=== PATIENT | female | born 1975 | race Caucasian/White ===

== ENCOUNTER 2018-12-21 06:31 | Day surgery (SDC) | payer BC ==
[~2018-12-21 06:31] MED LIST: Buffered Lidocaine 1% SYRIN* 1 ML/SYRINGE INTRADERM ONE; Lactated Ringers 1000 ML Bag* 1,000 ML IV SCH
[2018-12-21] MEDS ORDERED: Lidocaine 1% INJ* 10 MG/ML 30 ML SDV ONE (07:13)
[2018-12-21] MEDS ORDERED: fentaNYL* 50 MCG/ML 2 ML VIAL (100 MCG VIAL) ONE (07:49)
[2018-12-21] MEDS ORDERED: Propofol* 10 MG/ML 20 ML BTL ONE (07:49)
[2018-12-21] MEDS ORDERED: Lidocaine 2% PF * 5 ML VIAL ONE (07:49)
[2018-12-21] MEDS ORDERED: Midazolam* 1 MG/ML 2 ML VIAL (2 MG) ONE (08:11)
[2018-12-21] MEDS ORDERED: Naloxone* 0.4 MG/ML 1 ML VIAL IV PRN (08:14)
[2018-12-21 09:07] VITALS: BP 123/71
--- NOTE | 2018-12-21 11:39 | OP ---
DATE OF OPERATION: 12/21/18 [facility] DATE OF : 71 SURGEON: Paradise Kim MD AIRPLANE FUELER: MARIANA Huffman ANESTHESIA: Local MAC. PRE-OP DIAGNOSIS: Left carpal tunnel syndrome. POST-OP DIAGNOSIS: Left carpal tunnel syndrome. OPERATIVE PROCEDURE: Left carpal tunnel release. ESTIMATED BLOOD LOSS: Zero. TOURNIQUET TIME: Approximately 8 minutes. INDICATION FOR PROCEDURE: Eloisa is a 43-year-old female who has numbness and tingling in the median nerve distribution of her left hand. She presents for left carpal tunnel release. DESCRIPTION OF PROCEDURE: The patient was brought to the operating room and was given a sedation anesthetic and a local infiltration of 10 cc of 1% plain lidocaine in the palm of her left hand. The skin of her left hand and forearm was prepped and draped in the usual sterile fashion. The hand and forearm were exsanguinated and the tourniquet elevated to 250 mmHg. A longitudinal incision was made in the palm in line with the ring finger. We dissected through the subcutaneous tissue down to the transverse carpal ligament. The ligament was divided sharply with the knife and then more proximally with the scissors. The nerve was dissected free from surrounding tissue and there was an area of moderate compression in the midportion of the ligament. The wound was irrigated and the skin edges reapproximated with 4-0 nylon suture. The wound was dressed with Xeroform, 4x4, Webril, and an Nikko wrap. The patient tolerated the procedure well and was brought to the recovery room in good condition. [id number]/[facility] #: [id number] [facility]Carol
== END 2018-12-21 09:23 | disposition home or self-care (01) ==
LOC: OREAST 06:31
PROVIDERS: ATTEND Orthopaedic Surgery
DX: G56.02 Carpal tunnel syndrome, left upper limb (principal); Z87.891 Personal history of nicotine dependence; Z68.34 Body mass index [BMI] 34.0-34.9, adult; F41.9 Anxiety disorder, unspecified; Z88.0 Allergy status to penicillin
CPT/HCPCS: 81025; J2250; J2704; J3010

== ENCOUNTER 2019-02-15 09:27 | Day surgery (SDC) | payer BC ==
--- NOTE | 2019-02-11 16:48 | HP ---
PREOPERATIVE HISTORY AND PHYSICAL: DATE OF SURGERY/ADMISSION: 02/15/19 DATE OF OFFICE VISIT/ENCOUNTER: 02/02/19 ATTENDING SURGEON: Paradise Kim MD * (DICTATED BY MARIANA RG) PROCEDURE: Right wrist carpal tunnel release. HISTORY OF PRESENT ILLNESS: This is a 43-year-old female who is complaining of numbness and tingling in her right hand and this is her dominant hand. She does not recall any injury. She has had trouble for about 5 years. She had a nerve conduction study, which showed carpal tunnel syndrome on the right. She has tried conservative treatment, including a brace but that was not helpful. She has trouble with symptoms at night and during the day when she does things like driving, cutting hair, and opening bottles. She recently underwent a left carpal tunnel release and did quite well with that. She is now consented to proceed with her right wrist carpal tunnel release. PAST MEDICAL HISTORY: 1. Hyperlipidemia. 2. Depression/anxiety. PAST SURGICAL HISTORY: 1. Breast reduction. 2. Left carpal tunnel release. CURRENT MEDICATIONS: 1. Lexapro 10 mg daily. 2. Seroquel 25 mg daily. 3. Simvastatin 10 mg daily. 4. Vitamin D 1000 units daily. ALLERGIES: 1. AMOXICILLIN. 2. AUGMENTIN. 3. PENICILLIN causes hives. 4. WELLBUTRIN causes anaphylaxis. 5. NEOSPORIN, POLYSPORIN causes hives and itching. FAMILY MEDICAL HISTORY: Hypertension. SOCIAL HISTORY: The patient is employed as a hairdresser. She is a former smoker. She denies alcohol use. REVIEW OF SYSTEMS: Negative for general, cephalic, cardiovascular, respiratory , GI, , other musculoskeletal, integumentary, endocrine, neurologic, and hematologic symptoms. Infectious Disease: Negative for MRSA, hepatitis C, HIV. PHYSICAL EXAMINATION GENERAL: Well-developed, well-nourished 43-year-old female in no acute distress. VITAL SIGNS: Height 5 feet 8 inches, weight 230 pounds. Blood pressure 138/90 , pulse rate 68. HEENT: Normocephalic, atraumatic. Pupils are equal, round, and reactive to light and accommodation. Extraocular movements are intact. Throat is clear. NECK: Supple. No palpable lymph nodes. PULMONARY: Lungs are clear to auscultation bilaterally. No wheezes, rales, or rhonchi. CARDIOVASCULAR: Regular rate and rhythm. S1, S2. No murmurs, rubs, or gallops. No edema. ABDOMEN: Positive bowel sounds. Soft, nontender. NEUROLOGIC: Alert and oriented x3. Cranial nerves II through XII are intact. Sensation is intact to light touch. MUSCULOSKELETAL: On exam of her right hand, there is no visible thenar wasting , but she does have weakness with some abduction. She has good motion in her fingers. Intact sensation to light touch. She has a positive median nerve compression test on the right. IMAGING: EMG and nerve conduction study shows mild carpal tunnel syndrome on right. IMPRESSION: Right carpal tunnel syndrome. PLAN/RECOMMENDATIONS: The patient is scheduled to undergo right wrist carpal tunnel release with Dr. Kim on 02/15/19. She will return to the office 10 days postop for followup and suture removal. A prescription for Tylenol No. 3 was e- scribed to the patient's pharmacy for postoperative pain management. MARIANA RG [id number]/[facility] #: [id number] RONALD
[~2019-02-15 09:27] MED LIST changes: +Famotidine IV* 10 MG/ML 2 ML (20 mg) IV ONE
[2019-02-15] MEDS ORDERED: Famotidine IV* 10 MG/ML 2 ML (20 mg) ONE (10:28)
[2019-02-15] MEDS ORDERED: Buffered Lidocaine 1% SYRIN* 1 ML/SYRINGE INTRADERM ONE (10:55)
[2019-02-15] MEDS ORDERED: Midazolam* 1 MG/ML 5 ML VIAL (5 MG) ONE (11:07)
[2019-02-15] MEDS ORDERED: Ketorolac INJ* 30 MG/ML 1 ML VIAL ONE (11:08)
[2019-02-15] MEDS ORDERED: Propofol* 10 MG/ML 20 ML BTL ONE ×2 (11:08→11:56)
[2019-02-15] MEDS ORDERED: Ondansetron INJ* 2 MG/ML VIAL ONE (11:11)
[2019-02-15] MEDS ORDERED: Acetaminophen TAB* 325 MG PO PRN (11:24)
[2019-02-15 14:08] VITALS: BP 114/70
[2019-02-15] MEDS ORDERED: Lidocaine 1% INJ* 10 MG/ML 30 ML SDV ONE (14:32)
--- NOTE | 2019-02-15 21:17 | OP ---
DATE OF OPERATION: 02/15/[facility] DATE OF : 71 SURGEON: Paradise Kim MD SAPPHIRE STYLUS GRINDER: MARIANA Huffman ANESTHESIA: Local MAC. PRE-OP DIAGNOSIS: Right carpal tunnel syndrome. POST-OP DIAGNOSIS: Right carpal tunnel syndrome. OPERATIVE PROCEDURE: Right carpal tunnel release. INDICATIONS FOR PROCEDURE: Eloisa is a 43-year-old female who has numbness and tingling in the median nerve distribution of her right hand. She presents for right carpal tunnel release. ESTIMATED BLOOD LOSS: Zero. TOURNIQUET TIME: Approximately 13 minutes. DESCRIPTION OF PROCEDURE: The patient was brought to the operating room, was given a sedation anesthetic and a local infiltration of 10 cc of 1% plain lidocaine in the palm of her right hand. The skin of her right hand and forearm was prepped and draped in the usual sterile fashion. The hand and forearm were exsanguinated and the tourniquet elevated to 250 mmHg. A longitudinal incision was made in the palm in line with the ring finger. We dissected through the subcutaneous tissue down to the transverse carpal ligament. The ligament was divided sharply with a knife and then more proximally with the scissors. The nerve was dissected free from the surrounding tissue and there was an area of moderate compression at the midportion of the ligament. The wound was irrigated and the skin edges reapproximated with 4-0 nylon suture. The wound was dressed with Xeroform, 4x4 , Webril, and an Nikko wrap. The patient tolerated the procedure well and was brought to the recovery room in good condition. [id number]/[facility] #: [id number] [facility]Carol
== END 2019-02-15 12:48 | disposition home or self-care (01) ==
LOC: OREAST 09:27
PROVIDERS: ATTEND Orthopaedic Surgery
DX: G56.01 Carpal tunnel syndrome, right upper limb (principal); E78.5 Hyperlipidemia, unspecified; F41.9 Anxiety disorder, unspecified; F32.9 Major depressive disorder, single episode, unspecified; Z88.1 Allergy status to other antibiotic agents; Z88.0 Allergy status to penicillin; Z88.8 Allergy status to other drugs, medicaments and biological substances; Z87.891 Personal history of nicotine dependence
CPT/HCPCS: 81025; J1885; J2250; J2405; J2704